=== PATIENT | female | born 1980 | race Caucasian/White ===

== ENCOUNTER 2018-01-12 17:01 | Emergency (ER) | payer OTHER ==
[~2018-01-12] VITALS: Ht 170.2 cm; Wt 56.2 kg
[~2018-01-12 17:01] MED LIST: ATIVAN1 M1 PO; DELTASONE20 MG PO; GABAPENTIN600 MG PO; PERCOCET 5/3251 TAB PO; PREVACID30 MG PO
[2018-01-12] MEDS ORDERED: PHENERGAN25 MG PO (23:06)
[2018-01-12] MEDS ORDERED: PEPCID AC20 MG PO (23:06)
== END 2018-01-12 23:26 | disposition home or self-care (01) ==
LOC: ER 17:01
DX: K52.9 Noninfective gastroenteritis and colitis, unspecified (principal)

== ENCOUNTER 2020-11-23 11:05 | Emergency (ER) | payer OTHER ==
[~2020-11-23] VITALS: Ht 170.2 cm; Wt 59.0 kg
[~2020-11-23 11:05] MED LIST changes: +PEPCID AC20 MG PO; +PHENERGAN25 MG PO
[2020-11-23] MEDS ORDERED: KETO10TA2 PO (21:30)
== END 2020-11-23 21:44 | disposition home or self-care (01) ==
LOC: ER 11:05
DX: N83.291 Other ovarian cyst, right side (principal); R10.84 Generalized abdominal pain